=== PATIENT | female | born 1995 | race Caucasian/White ===

== ENCOUNTER 2020-09-15 17:01 | Emergency (ER) | payer OTHER ==
[~2020-09-15] VITALS: Ht 157.5 cm; Wt 72.6 kg
[2020-09-15] MEDS ORDERED: LEXAPRO20 MG PO (17:14)
[2020-09-15] MEDS ORDERED: TRAZODONE HCL100 MG PO (17:15)
[2020-09-15] MEDS ORDERED: SUBOXONE 8 MG-1 EAC1 SL (17:15)
[2020-09-15] MEDS ORDERED: EPIPEN 2-P0.3 MG/0.3 IM (18:40)
== END 2020-09-15 19:02 | disposition home or self-care (01) ==
LOC: ED 17:01
DX: T78.1XXA Other adverse food reactions, not elsewhere classified, initial encounter (principal); F17.200 Nicotine dependence, unspecified, uncomplicated; Z91.018 Allergy to other foods
CPT/HCPCS: 99283; J7512; Q0163